=== PATIENT | female | born 1970 | race Caucasian/White ===

== ENCOUNTER 2023-12-26 14:22 | Outpatient (AMB) | payer MEDICAID, SELFPAY ==
--- NOTE | 2023-12-26 14:34 | A.OFFVIS_ITS ---
Intake Visit Reasons: microscopic hematuria Intake Note: Patient is present for microscopic hematuria Urology Medication:none Antibiotic Allergy:none Blood Thinner:none Cnc Lathe Programmer Required: No Allergies No Known Allergies Allergy (Verified 12/26/23 14:35) HPI Comments Details: Brittany is a 53-year-old female who is here for evaluation for hematuria. The patient states that she saw blood in her urine in August, she denies any urinary burning. She was seen by her blood donor recruiter supervisor and states that she was treated with antibiotics. History of nicotine use.I have discussed microscopic hematuria may be due to but not limited to kidney stones, BPH, cystitis, urinary tract malignancy. I will call I have discussed work up to include evaluation of the urinary tract which may include imaging, further urine testing, and cystoscopy. Review of Systems Const All systems reviewed & are unremarkable except as noted in HPI and below Reports no additional complaints Eyes Reports no additional complaints ENT Reports no additional complaints Card Reports no additional complaints Resp Reports no additional complaints GI Reports no additional complaints Reports as per HPI Musc Reports no additional complaints Skin/Breast Reports system reviewed and no additional complaints, except as documented Neuro Reports no additional complaints Psych Reports no additional complaints Endo Reports no additional complaints Kumar/Lymph Reports no additional complaints Aller/Immun Reports no additional complaints Physical Exam Const General: healthy appearing, no acute distress and well developed Orientation/consciousness: patient oriented x3 HEENT Head: Yes normocephalic and Yes atraumatic Eyes Conjunctivae: conjunctivae normal Neck Neck: Yes normal visual inspection Chest Chest palpation & inspection: normal inspection of the chest Resp Effort & Inspection: normal respiratory effort Cardio Rate: regular rate GI Inspection: Yes normal to inspection Skin General skin exam: no rashes or lesions noted Neuro General: patient oriented x3 Extrem General: No pedal edema Psych Appearance: grossly normal Affect: normal affect Results AMB Urinalysis, Automated UA Leukoctes 0 Omer/uL Last Edit by MISSAEL Tenorio on 12/26/23 14:48 UA Nitrite Negative Last Edit by MISSAEL Tenorio on 12/26/23 14:48 UA Urobilinogen 0.2 mg/dL Last Edit by MISSAEL Tenorio on 12/26/23 14:4 8 UA Protein 15 mg/dL Last Edit by MISSAEL Tneorio on 12/26/23 14:48 UA pH 6.5 Last Edit by MISSAEL Tenorio on 12/26/23 14:48 UA Blood 10 Mauro/uL Last Edit by MISSAEL Tenorio on 12/26/23 14:48 UA Specific Purdin 1.015 Last Edit by MISSAEL Tenorio on 12/26/23 14: 48 UA Ketone Negative Last Edit by MISSAEL Tenorio on 12/26/23 14:48 UA Bilirubin 0 mg/dL Last Edit by MISSAEL Tenorio on 12/26/23 14:48 UA Glucose 0 mg/dL Last Edit by MISSAEL Tenorio on 12/26/23 14:48 Results Reviewed Results Reviewed: Laboratory Last Values Urine pH (Auto) 6.5 12/26/23 14:46 Specific Purdin (Auto) 1.015 12/26/23 14:46 Urine Protein (Auto) 15 mg/dL 12/26/23 14:46 Glucose (UA)(Auto) 0 mg/dL 12/26/23 14:46 Urine Ketones (Auto) Negative 12/26/23 14:46 Urine Blood (Auto) 10 Mauro/uL 12/26/23 14:46 Urine Nitrite (Auto) Negative 12/26/23 14:46 Urine Bilirubin (Auto) 0 mg/dL 12/26/23 14:46 Urine Urobilinogen (Auto) 0.2 mg/dL 12/26/23 14:46 Leukocyte Esterase (Auto) 0 Omer/uL 12/26/23 14:46 Assessment & Plan Assessment & Plan (1) Gross hematuria: Code(s): R31.0 - Gross hematuria Category: Medical (2) Urinary frequency: Code(s): R35.0 - Frequency of micturition Category: Medical Plan CTAP fu cysto Orders: Orders AMB Urinalysis Automated 12/26/23 Z13.9 - Encounter for screening, unspecified Urine Cytology 12/26/23 N39.0 - Urinary tract infection, site not specified Patient Instructions: The patient had an opportunity to ask questions regarding treatment plan. The patient expressed understanding and agreement with the above treatment plan. The patient is aware they should contact our office by phone for worsening of their current condition or the appearance of new symptoms. Compliance is encouraged with any medications and followup testing that is ordered. It is a privilege to be allowed the opportunity to participate in the urologic care of your patient. If you have any questions or concerns regarding treatment for the above conditions please do not hesitate to contact me. The office telephone contact is [phone]. This note is constructed in part using voice recognition software. While every effort has been made to ensure accuracy petrol tanker driver errors may have been included. Yours sincerely, Aldo Marino MD Coding Level of Care Code New Pt Level 4 (03018) Diagnoses Gross hematuria R31.0 Urinary frequency R35.0
== END 2023-12-26 15:15 | disposition home or self-care (01) ==
PROVIDERS: PCP Physician Assistant; Visit Provider Urology
DX: R31.0 Gross hematuria (principal); R35.0 Frequency of micturition
CPT/HCPCS: 99204

== ENCOUNTER 2023-12-26 14:22 | Outpatient (REF) | payer MEDICAID, SELFPAY ==
[2023-12-26 17:56] LABS: Urine Cytology See Pathology rpt
== END 2023-12-26 14:23 | disposition home or self-care (01) ==
LOC: HO.LNP 14:22
PROVIDERS: PCP Physician Assistant; Visit Provider Urology
DX: R31.9 Hematuria, unspecified (principal); N39.0 Urinary tract infection, site not specified
CPT/HCPCS: 81003; 88112; 99202

== ENCOUNTER 2023-12-27 14:46 | Outpatient (REF) | payer MEDICAID, SELFPAY | END 2023-12-27 14:47 | disposition home or self-care (01) | LOC: HO.SH 14:46 | PROVIDERS: Visit Provider Physician Assistant | DX: Z01.118 Encounter for examination of ears and hearing with other abnormal findings (principal); H93.293 Other abnormal auditory perceptions, bilateral | CPT/HCPCS: 92557 ==

== ENCOUNTER 2024-02-08 13:42 | Outpatient (AMB) | payer MEDICAID, SELFPAY ==
--- NOTE | 2024-02-08 13:13 | MHC.OFFVIS ---
Intake Visit Reasons: cysto/CT Intake Note: Patient is present for Cystoscopy Urology Medication:NONE Antibiotic Allergy:NONE Blood Thinner:NONE Lot:[id number] Exp:02/03/27 Learning And Development Manager Required: No Allergies codeine Allergy (Mild, Verified 02/08/24 15:06) Itching oxycodone Allergy (Mild, Verified 02/08/24 15:06) Itching HPI Comments Details: 02/08/24-- Brittany was referred due to hematuria. Here for cystoscopy. CT not done. The patient states she has a history of kidney stones. She states she had recent back surgery done, that is why she missed her prior appointment and was unable to have the CT imaging done before this visit. Urine cytology- 12/26/23-- Atypical cells. Cystoscopy findings: Bladder mucosa within normal limits, no suspicious lesions visualized. Review of chart: 12/26/23--Brittany is a 53-year-old female who is here for evaluation for hematuria. The patient states that she saw blood in her urine in August, she denies any urinary burning. She was seen by her concrete mixer truck driver and states that she was treated with antibiotics. History of nicotine use.I have discussed microscopic hematuria may be due to but not limited to kidney stones, BPH, cystitis, urinary tract malignancy. I will call I have discussed work up to include evaluation of the urinary tract which may include imaging, further urine testing, and cystoscopy. Review of Systems Const All systems reviewed & are unremarkable except as noted in HPI and below Reports no additional complaints Eyes Reports no additional complaints ENT Reports no additional complaints Card Reports no additional complaints Resp Reports no additional complaints GI Reports no additional complaints Reports as per HPI Musc Reports no additional complaints Skin/Breast Reports system reviewed and no additional complaints, except as documented Neuro Reports no additional complaints Psych Reports no additional complaints Endo Reports no additional complaints Kumar/Lymph Reports no additional complaints Aller/Immun Reports no additional complaints Office Procedures Cystoscopy Consent Discussed risk and benefit or proposed procedure with the patient. Information consent for procedure given to the patient. Discussed technical aspects, risks, benefits and alternatives in full. Addressed all of the patient's questions and concerns regarding the procedure. The patient demonstrated knowledge and understanding. They wish to proceed with this procedure. Preparation The patient was prepped in the usual manner. A manager corporate strategy was present and in the room. Genitalia was prepped with betadine solution in a sterile manner. Lidocaine Jelly 2% was placed into the urethra and 16Fr flexible Olympus cystoscope was inserted into the meatus after adequate lubrication. Procedure Time out per protocol performed. Bladder Inspection Bladder Inspection: The bladder was inspected in its entirety with utilization retroflexion displaying: Tumor(s): no suspicious bladder lesions visualized Trabeculation: NA Mucosal Erthema: NA Orifices: normal shape and position Urethra: normal Cystoscopy findings: WNL, no suspicious bladder lesions visualized [id number] DISPOSABLE SCOPE URO-G FLEXIBLE SCOPE Procedure code (CPT) selection complete Office Meds lidocaine HCl 2 % mucosal jelly in applicator Performing Provider: Aldo Marino MD Performing Location: [facility] Administered by: Marcelino uMnoz LPN on 02/08/24 14:04 Dose Route Admin Location Dispensed Lot Number Expiration Date [facility] Clinical Trial Leader 10 mL intra-urethral 10 mL naproxen 500 mg tablet Performing Provider: Aldo Marino MD Performing Location: [facility] Administered by: Marcelino Munoz LPN on 02/08/24 14:04 Dose Route Admin Location Dispensed Lot Number Expiration Date [place] Clinical Trial Leader 500 mg PO 1 tab ciprofloxacin HCl 500 mg tablet Performing Provider: Aldo Marino MD Performing Location: [facility] Administered by: Marcelino Munoz LPN on 02/08/24 14:04 Dose Route Admin Location Dispensed Lot Number Expiration Date [place] Clinical Trial Leader 500 mg PO 1 tab Results AMB Urinalysis, Automated UA Leukoctes 15 Omer/uL Last Edit by MISSAEL Tenorio on 02/08/24 14:05 UA Nitrite Negative Last Edit by MISSAEL Tenorio on 02/08/24 14:05 UA Urobilinogen 0.2 mg/dL Last Edit by MISSAEL Tenorio on 02/08/24 14:05 UA Protein 15 mg/dL Last Edit by MISSAEL Tenorio on 02/08/24 14:05 UA pH 6.0 Last Edit by MISSAEL Tenorio on 02/08/24 14:05 UA Blood 25 Mauro/uL Last Edit by MISSAEL Tenorio on 02/08/24 14:05 UA Specific Glide 1.025 Last Edit by MISSAEL Tenorio on 02/08/24 14:05 UA Ketone Negative Last Edit by MISSAEL Tenorio on 02/08/24 14:05 UA Bilirubin 0 mg/dL Last Edit by MISSAEL Tenorio on 02/08/24 14:05 UA Glucose 0 mg/dL Last Edit by MISSAEL Tenorio on 02/08/24 14:05 Results Reviewed Results Reviewed: Laboratory Last Values Urine pH (Auto) 6.0 02/08/24 14:04 Specific Glide (Auto) 1.025 02/08/24 14:04 Urine Protein (Auto) 15 mg/dL 02/08/24 14:04 Glucose (UA)(Auto) 0 mg/dL 02/08/24 14:04 Urine Ketones (Auto) Negative 02/08/24 14:04 Urine Blood (Auto) 25 Mauro/uL 02/08/24 14:04 Urine Nitrite (Auto) Negative 02/08/24 14:04 Urine Bilirubin (Auto) 0 mg/dL 02/08/24 14:04 Urine Urobilinogen (Auto) 0.2 mg/dL 02/08/24 14:04 Leukocyte Esterase (Auto) 15 Omer/uL 02/08/24 14:04 Collected: 12/26/23 Location: [facility] Received: 12/27/23 Diagnosis Urine, cytology: Atypical urothelial cells present. COMMENT: Review of the cytology preparation demonstrates a cellular specimen composed of benign squames and few groups of atypical urothelial cells with increased nuclear to cytoplasmic ratios and nuclear hyperchromasia. Clinical History Urinary tract infection, site not specified Material Received Urine Gross Description Received is 22 cc of clear dark yellow fluid from which a ThinPrep slide is prepared. Assessment & Plan Assessment & Plan (1) Gross hematuria: Code(s): R31.0 - Gross hematuria Category: Medical (2) Urinary frequency: Code(s): R35.0 - Frequency of micturition Category: Medical (3) History of kidney stones: Code(s): Z87.442 - Personal history of urinary calculi Category: Medical (4) Abnormal urine cytology: Code(s): R82.89 - Other abnormal findings on cytological and histological examination of urine Category: Medical Plan CT scan abdomen pelvis was ordered patient will call radiology to schedule. I will discuss results with her when available. Repeat urine cytology. Orders: Orders AMB Urinalysis Automated 02/08/24 Z13.9 - Encounter for screening, unspecified AMB Cystoscopy 02/08/24 R35.0 - Frequency of micturition, R31.0 - Gross hematuria Urine Cytology 02/08/24 N39.0 - Urinary tract infection, site not specified Patient Instructions: The patient had an opportunity to ask questions regarding treatment plan. The patient expressed understanding and agreement with the above treatment plan. The patient is aware they should contact our office by phone for worsening of their current condition or the appearance of new symptoms. Compliance is encouraged with any medications and followup testing that is ordered. It is a privilege to be allowed the opportunity to participate in the urologic care of your patient. If you have any questions or concerns regarding treatment for the above conditions please do not hesitate to contact me. The office telephone contact is [phone]. This note is constructed in part using voice recognition software. While every effort has been made to ensure accuracy spa therapist errors may have been included. Yours sincerely, Aldo Marino MD Coding Level of Care Code Est Pt Level 3 (35496) Diagnoses Gross hematuria R31.0 Urinary frequency R35.0 History of kidney stones Z87.442 Abnormal urine cytology R82.89 CPT Codes Cystoscopy - CPT: [id number] ([id number])
== END 2024-02-08 14:32 | disposition home or self-care (01) ==
PROVIDERS: PCP Physician Assistant; Visit Provider Urology
DX: R35.0 Frequency of micturition (principal); R31.0 Gross hematuria; Z13.9 Encounter for screening, unspecified
CPT/HCPCS: 52000; 99213

== ENCOUNTER 2024-02-08 13:42 | Outpatient (REF) | payer MEDICAID, SELFPAY ==
[2024-02-08 16:53] LABS: Urine Cytology See Pathology rpt
== END 2024-02-08 13:43 | disposition home or self-care (01) ==
LOC: HO.LAB 13:42
PROVIDERS: PCP Physician Assistant; Visit Provider Urology
DX: R31.0 Gross hematuria (principal); N39.0 Urinary tract infection, site not specified; R35.0 Frequency of micturition; R82.89 Other abnormal findings on cytological and histological examination of urine; Z87.442 Personal history of urinary calculi
CPT/HCPCS: 52000; 81003; 88112; 99212

== ENCOUNTER 2024-05-02 14:19 | Outpatient (REF) | payer MEDICAID, SELFPAY ==
--- OUTSIDE RECORDS SUMMARY | 2024-05-02 14:20 | XMS_ITS | Clinical Summary ---
Author Organization [facility] Address [address] [place] [address] Care Team Providers Care Cost And Sales Record Supervisor Name Role Phone Lucía Palencia PA-C Primary Care Provider + [phone] Source Comments PLEASE NOTE, if this patient is a minor, it may be UNLAWFUL to discuss sensitive information that is contained in these records (such as FAMILY PLANNING, MENTAL HEALTH or SUBSTANCE ABUSE) with the minor patient's parent or other person without the patient's specific authorization.[facility] Allergies Active Allergy Reactions Criticality Noted Date Comments Codeine Itching 12/20/2012 Oxycodone-Acetaminophen Itching 12/20/2012 Medications mirtazapine (REMERON) 15 mg tabletIndication s:Insomnia Take 1 Tab by mouth nightly at bedtime. PER PSYCH. 013 Active buPROPion HCl (WELLBUTRIN XL) 300 mg 24 hr tablet 019 Active VITAMIN D3 2,000 unit capsuleIndicatio ns:Vitamin D deficiency disease Take 1 Cap by mouth once daily 30 Cap 11 019 Active oxybutynin chloride (DITROPAN-XL) 5 mg 24 hr tabletIndication s:Night sweats Take 1 Tablet by mouth nightly at bedtime 30 Tablet 4 022 Active FLUoxetine (PROZAC) 40 mg capsule 022 Active MISCELLANEOUS MEDICAL SUPPLY MISC by miscellaneous route daily. Ensure original, disp 90/month, dx unintended weight loss, low BMI 90 Each 11 024 Active diazePAM (VALIUM) 5 mg tabletIndication s:Lumbosacral disc herniation Take 1 Tablet by mouth 2 (two) times daily as needed for anxiety 60 Tablet 024 Active naproxen (NAPROSYN) 500 mg tabletIndication s:Left lumbar radiculopathy Take 1 Tablet by mouth 2 (two) times daily with a meal 180 Tablet 1 Active fluticasone furoate (ARNUITY ELLIPTA) 100 mcg/actuation dsdv Inhale 1 Puff into the lungs once daily 30 Each 4 Active estradioL (VIVELLE-DOT) 0.05 mg/[address] 1 Patch onto the skin 2 times a week 24 Patch 3 024 Active estradioL (VIVELLE-DOT) 0.05 mg/[address] 1 Patch onto the skin 2 times a week 24 Patch 1 024 Active VENTOLIN HFA 90 mcg/actuation inhalerIndicatio ns:Mild persistent asthma without complication Inhale 2 Puffs into the lungs every 4 (four) hours as needed for shortness of breath 18 g 1 025 Active VENTOLIN HFA 90 mcg/actuation inhalerIndicatio ns:Mild persistent asthma without complication Inhale 2 Puffs into the lungs every 4 (four) hours as needed for shortness of breath 18 g 1 024 2024 Discontinued Active Problems Problem Noted Date Diagnosed Date Lumbar disc disease 12/07/2023 Positive colorectal cancer screening using Colog uard test 09/23/2023 Recurrent nephrolithiasis 07/28/2022 Hot flashes 10/05/2021 H/O mammogram 11/05/2017 Overview (11/12/2017): Mammo 11/01/17 at [facility] 1, possibly 2 round masses in the left breast, U/S recommended, Pt will be called back. BIRADS 0 L Breast U/S 11/08/17 BIRADS 2 Hidradenitis suppurativa 10/09/2017 Abnormal mammogram of left breast 12/17/2015 Overview (11/05/2017): mammo left breast 12/07/15 which revealed developing grouped calcifications within upper inner posterior left breast for which magnification views are recommended. No specific mammo evidence of malignancy right. Uni left 12/14/15 = confirmed cluster of micro-calcifications posteriorly upper-inner quadrant left breast which are intermediate suspicion for malignancy. Core bx 12/30/15 = suspicious abnormality- need localization followed by surgical excision. Referred to breast surgeon. Mammo 11/01/17 at [facility] 1, possibly 2 round masses in the left breast, U/S recommended, Pt will be called back. BIRADS 0 Right ovarian cyst 10/07/2015 Overview (10/07/2015): 2.7 cm simple cyst right ovary, 1.7 cm dominant follicle left ovary via US Pelvis 10/05/15 at [facility] Granuloma of skin, right elbow secondary to fore ign body 05/14/2015 Left carpal tunnel syndrome 02/24/2014 Overview (02/24/2014): F/u neos. S/P right carpal tunnel release 11/06/2013 Dr. Johnson er 11/11/2013 Right carpal tunnel syndrome 08/02/2013 Overview (08/02/2013): EMG/NCS done 07/22/13 revealed mild to moderate right median neuropathy across carpal tunnel affecting sensory and motor component.s Cystic acne vulgaris 06/06/2013 Vitamin D deficiency disease 12/23/2012 Overview (12/23/2012): =13. Mixed hyperlipidemia 12/23/2012 Anxiety and depression 12/20/2012 Overview (12/20/2012): F/u psych at [address] [place] [address]. Insomnia 12/20/2012 Overview (12/20/2012): F/U PSYCH. Mild persistent asthma 12/20/2012 Tobacco abuse disorder 12/20/2012 Neck pain 12/20/2012 Back pain 12/20/2012 Immunizations Name Administration Dates Next Due Flu, Preservative Free 04/27/2023,2022,03/20/2018,01/11 INFLUENZA, SEASONAL, INJECTABLE 01/31/2015,12/20 PNEUMOCOCCAL CONJUGATE PCV 13 01/12/2016 PNEUMOCOCCAL POLYSACCHARIDE PPV23 10/09/2017 TDAP 04/27/2023 ZOSTER VACCINE, RECOMBINANT (SHINGRIX) 4,04/27/2023 Family History Medical History Relation Name Comments Diabetes Brother 1 No Known Problems Brother 2 Asthma Daughter 1 No Known Problems Daughter 2 Unknown Father Cancer Maternal Uncle Liver CA Diabetes Mother High Cholesterol Mother Thyroid Disease Mother Asthma Sister 1 Depression Sister 1 No Known Problems Sister 2 No Known Problems Son Heart Problems Neg Relation Name Status Comments Brother 1 Alive Brother 2 Alive Daughter 1 Alive Daughter 2 Alive Father Maternal Uncle Mother Alive Sister 1 Alive Sister 2 Alive Son Alive Social History Tobacco Use Types Packs/Day Years Used Date Smoking Tobacco: Every Day Cigarettes 0.5 33 Passive Smoke Exposure: Never Smokeless Tobacco: Never Tobacco Cessation:Ready to Q uit: No; Counseling Given: Yes Comments:Started smoking age 14 Alcohol Use Standard Drinks/Week Comments Not Currently 0 (1 standard drink = 0.6 oz pur e alcohol) Occassional Social Connections Answer Date Recorded Connectedness 1 06/29/2023 Financial Resource Strain Answer Date R ecorded Financial Resource Strain 1 2023 Stress Answer Date Recorded Stress 1 06/29/2023 Physical Activity Answer Date Recorded Physical Activity 0 11/18/2018 Food Insecurity Answer Date Recorded Food 2 06/29/2023 Transportation Needs Answer Date Record ed Transportation 1 06/29/2023 Housing Stability Answer Date Recorded Housing 2 06/29/2023 Safety and Environment Answer Date William rded Safety 1 06/29/2023 Utilities Answer Date Recorded Utilities 1 06/29/2023 Employment Answer Date Recorded Stress 0 07/28/2022 Comments No Sex and Gender Information Value Date Recorded Sex Assigned at Female 10/09/2017 12:04 PM PDT Legal Sex Female 5:04 PM PDT Gender Identity Female 10/09/2017 12:04 PM PDT Sexual Orientation Straight 10/09/2017 12 :04 PM PDT Last Filed Vital Signs Vital Sign Reading Time Taken Comments Blood Pressure 90/60 12/07/2023 3:21 PM EDT Pulse 84 12/07/2023 3:21 PM EDT Temperature 36.8 ??C (98.3 ??F) 12/07/2023 3:21 PM ED T Respiratory Rate 16 10/23/2023 1:07 PM EDT Oxygen Saturation 99% 12/07/2023 3:21 PM EDT Inhaled Oxygen Concentration - - Weight 40.4 kg (89 lb) 12/07/2023 3:21 PM EDT Height 149.9 cm (4' 11 ) 12/07/2023 3:21 PM EDT Body Mass Index 17.98 12/07/2023 3:21 PM EDT Plan of Treatment Upcoming Encounters Date Type Department Care Team (Late st Contact Info) Description 05/20/2024 1:00 PM EST Office Visit [facility] [address] [place] [address] Jordan Alejandra MD [address] [place] [address] Health Maintenance Due Date Last Done Comments HPV Screening 1970 Imm-Hepatitis B (1 of 3 - 19 + 3-dose series) 1989 CT Colonography 09/10/2015 Colonoscopy 09/10/2015 Flexible Sigmoidoscopy 09/10/2015 Pap Smear 04/29/2021 04/29/2018 Imm-Pneumococcal (3 of 3 - P CV20 or PCV21) 10/09/2022 10/09/2017, 01/12/2016 Colorectal Cancer Screening 09/16/2023 [id number] ( season) 2023 Imm-Influenza (#1) 2023 04/27/2023, 0 07/25/2022, 03/20/2018, Additional history exists Depression Monitoring 01/16/2024 10/16/2023 , 10/02/2023, 08/29/2023, Additional history exists Alcohol and Drug Screen 04/02/2024 10/16/19 24, 04/27/2023, 07/28/2022, Additional history exists Annual Preventive Care Visit 08/28/2024, 07/28/2022, 04/29/2018, Additional history exists FIT/gFOBT 09/14/2024 09/15/2023 Breast Cancer Screening (Mammogram) 11/15/2024 11/16/2023, 10/10/2022, 11/01/2017, Additional history exists Hypertension Screening (#1) 12/06/2024 Tobacco Cessation Counseling (#1) 12/06/2024 10/02/2023, 08/31/2023, 11/18/2018, Additional history exists Diabetes Screening 08/28/2026 08/29/2023, 0 04/27/2023, 04/27/2023, Additional history exists Fecal DNA 09/14/2026 09/15/2023 Lipid Screening 08/28/2028 08/29/2023, 04/2 09/2021, 09/20/2018, Additional history exists Imm-DTaP/Tdap/Td (2 - Td or Tdap) 04/27/2033 024 HIV Screening Completed 07/27/2021, 03/20/2018 Hepatitis C Screening Completed 07/27/2021 Imm-Zoster, Recombinant Completed 08/29/2023, 04/27 Cervical Ablation/Cold-Knife Conization Discontinued Cervical Cancer Screening Discontinued Cervical Cryotherapy Discontinued Colposcopy Discontinued Endometrial Biopsy Discontinued Excision/Leep Discontinued HPV Genotyping Discontinued Pap + HPV Discontinued Vaginal Pap Discontinued Vulvoscopy Discontinued Procedures Procedure Name Priority Date/Time Associated Diagnosis Comments REFERRAL SCANNED DOCUMENT 02/08/2024 3:00 AM EST HISTORIC MAMMOGRAM 11/16/2023 3: 00 AM EDT COLOGUARD Routine 09/15/2023 7:15 AM EDT Colon cancer screening COMPREHENSIVE METABOLIC PANEL Routine 08/29/2023 1:49 PM EDT Routine general medical examination at a health care facility Left lumbar radiculopathy Tobacco abuse disorder Mixed hyperlipidemia Colon cancer screening LIPID PANEL Routine 08/29/2023 1:49 PM EDT Routine general medical examination at a health care facility Left lumbar radiculopathy Tobacco abuse disorder Mixed hyperlipidemia Colon cancer screening HIV 1/2 AG & AB W/RFLX (4TH GEN) Routine 07/27/2021 9:00 AM EDT Anxiety and depression Mixed hyperlipidemia Hot flashes HEPATITIS C AB W/RFLX HCV RNA, QT, RT PCR Routine 07/27/2021 9:00 AM EDT Anxiety and depression Mixed hyperlipidemia Hot flashes PAP, LIQUID BASED Routine 04/29/2018 1:3 2 PM EST Encounter for gynecological examination without abnormal finding Cervical cancer screening from Last 3 Months or Most Recently Relevant to Health Maintenance Results * REFERRAL SCANNED DOCUMENT (02/08/2024 3:00 AM EST) 02/08/2024 3:00 AM EST Lucía Palencia PA-C SCAN REFERRAL Final Result * HISTORIC MAMMOGRAM (11/16/2023 3:00 AM EDT) 11/16/2023 3:00 AM EDT Lucía Palencia PA-C IMG MAMMO Final Result * (ABNORMAL) COLOGUARD (09/15/2023 7:15 AM EDT) [facility] COLOGUARD DNA/OCCULT BLOOD SCREENING PRESENCE POSITIVE( A) Negative [facility] Stool Stool specimen / Unknown 09/15/2023 7:15 AM EDT Lucía Palencia PA-C LAB - NO BLOOD DRAW Final Re sult [facility] [address] [facility], [address] [facility] [id number] [place] [address], * (ABNORMAL) LIPID PANEL (08/29/2023 1:49 PM EDT) Pathologist [facility] CHOLESTEROL, TOTAL 225(H) <200 mg/dL [facility] HDL CHOLESTEROL 48(L) > OR = 50 mg/dL [facility] TRIGLYCERIDES 179(H) <150 mg/dL [facility] LDL-CHOLESTEROL 146(H) 99 mg/dL (calc) [facility] Comment: Reference range: <100 Desirable range <100 mg/dL for primary prevention; ?? <70 mg/dL for patients with CHD or diabetic patients with > or = 2 CHD risk factors. LDL-C is now calculated using the Vineet calculation, which is a validated novel method providing better accuracy than the Friedewald equation in the estimation of LDL-C. Brannon BUSCH et al. NIKIA. 2013;310(19): 3304-2928 (http://education.Meridian/faq/JXB177) CHOL/HDLC RATIO 4.7 <5.0 (calc) [facility] NON-HDL CHOLESTEROL 177(H) <130 mg/dL (calc) [facility] Comment: For patients with diabetes plus 1 major ASCVD risk factor, treating to a non-HDL-C goal of <100 mg/dL (LDL-C of <70 mg/dL) is considered a therapeutic option. Blood Blood / Unknown 08/29/2023 1:49 PM EDT 08/29/2023 1:50 PM EDT Narrative [facility] - 09/06/2023 12:51 PM EDT FASTING:NO us Lucía Palencia PA-C LAB - BLOOD DRAW Final Resul t [facility] [address] [address], [facility] [address] [address] * (ABNORMAL) COMPREHENSIVE METABOLIC PANEL (08/29/2023 1:49 PM EDT) [facility] GLUCOSE 43(L) 65 - 139 mg/dL [facility] Comment: ?Non-fasting reference interval UREA NITROGEN (BUN) 26(H) 7 - 25 mg/dL [facility] CREATININE (blood) 0.83 0.50 - 1.03 mg/dL [facility] EGFR 85 > OR = 60 mL/min/1. 73m2 [facility] BUN/CREATININE RATIO 31(H) 6 - 22 (calc) [facility] SODIUM 142 135 - 146 mmol/L [facility] POTASSIUM 4.7 3.5 - 5.3 mmol/L [facility] CHLORIDE 107 98 - 110 mmol/L [facility] CARBON DIOXIDE 23 20 - 32 mmol/L [facility] CALCIUM 9.6 8.6 - 10.4 mg/dL [facility] PROTEIN, TOTAL 6.3 6.1 - 8.1 g/dL [facility] ALBUMIN 4.2 3.6 - 5.1 g/dL [facility] GLOBULIN 2.1 1.9 - 3.7 g/dL (calc) [facility] ALBUMIN/GLOBULIN RATIO 2.0 1.0 - 2.5 (calc) [facility] BILIRUBIN, TOTAL 0.2 0.2 - 1.2 mg/dL [facility] ALKALINE PHOSPHATASE 72 37 - 153 U/L [facility] [place] [facility] AST 13 10 - 35 U/L [facility] [place] [facility] ALT 11 6 - 29 U/L [facility] Blood Blood / Unknown 08/29/2023 1 :49 PM EDT 08/29/2023 1:50 PM EDT Narrative [facility] - 09/06/2023 12:51 PM EDT FASTING:NO Lucía Palencia PA-C LAB - BLOOD DRAW Edited Resu lt - Final [facility] [address] [address], [facility] [address] [address] * HEPATITIS C AB W/RFLX HCV RNA, QT, RT PCR (07/27/2021 9:00 AM EDT) HEPATITIS C ANTIBODY NON-REACT RAFITA NON-REACT RAFITA [facility] SIGNAL TO CUT-OFF 0.01 <1.00 [facility] Comment: HCV antibody was non-reactive. There is no laboratory evidence of HCV infection. In most cases, no further action is required. However, if recent HCV exposure is suspected, a test for HCV RNA (test code 74321) is suggested. For additional information please refer to http://education.CmyCasa/faq/QIR42v9 (This link is being provided for informational/ educational purposes only.) Blood Blood / Unknown 07/27/2021 9 :00 AM EDT 07/27/2021 9:01 AM EDT Lucía Palencia PA-C LAB - BLOOD DRAW Edited Resu lt - Final Performing Organization Address City/[facility]/ZIP Co de Phone Number [facility] [address] [address], [facility] [address],[place] [address] * HIV 1/2 AG & AB W/RFLX (4TH GEN) (07/27/2021 9:00 AM EDT) HIV AG/AB, 4TH GEN NON-REAC TIVE NON-REAC TIVE [facility] Comment: HIV-1 antigen and HIV-1/HIV-2 antibodies were not detected. There is no laboratory evidence of HIV infection. PLEASE NOTE: This information has been disclosed to you from records whose confidentiality may be protected by state law. ??If your state requires such protection, then the state law prohibits you from making any further disclosure of the information without the specific written consent of the person to whom it pertains, or as otherwise permitted by law. A general authorization for the release of medical or other information is NOT sufficient for this purpose. ?? For additional information please refer to http://education.CmyCasa/faq/EQT073 (This link is being provided for informational/ educational purposes only.) The performance of this assay has not been clinically validated in patients less than 2 years old. Blood Blood / Unknown 07/27/2021 9 :00 AM EDT 07/27/2021 9:01 AM EDT Lucía Palencia PA-C LAB - BLOOD DRAW Final Resul t [facility] [address] [address], [facility] [address],[place] [address] * PAP, LIQUID BASED (04/29/2018 1:32 PM EST) PAP normal NORMAL - ABNORMAL [facility] Specimen from vagina (specimen) Vaginal structure / Unknown 04/29/2018 1:32 PM EST Impressions [facility] - 05/06/2018 4:28 PM EST Negative for squamous intraepithelial lesion and malignancy High risk HPV assay: Negative Repeat 5 years Lucía Palencia PA-C LAB - NO BLOOD DRAW Final Re sult [facility] [address] [place] [address], from Last 3 Months or Most Recently Relevant to Health Maintenance Insurance [place] MED[place] DENTAL [facility] SAF[employer]Y NET DENTAL A[employer] Care Teams Cost And Sales Record Supervisor Relationship Specialty Start Date End Date Lucía Palencia PA-C [address] [place] [phone] PCP - General Internal Medicine 02/02/20
== END 2024-05-02 14:20 | disposition home or self-care (01) ==
LOC: HO.US 14:19
PROVIDERS: PCP Physician Assistant; Visit Provider Urology
DX: R31.0 Gross hematuria (principal); R82.89 Other abnormal findings on cytological and histological examination of urine; R35.0 Frequency of micturition; Z87.442 Personal history of urinary calculi
CPT/HCPCS: 76770

== ENCOUNTER → 2024-05-02 14:20 | Outpatient (BNV) | payer MEDICAID, SELFPAY | PROVIDERS: PCP Physician Assistant; Visit Provider Specialist | DX: R82.89 Other abnormal findings on cytological and histological examination of urine (principal) | CPT/HCPCS: 76770 ==

== ENCOUNTER 2024-05-12 13:29 | Outpatient (AMB) | payer MEDICAID, SELFPAY ==
--- NOTE | 2024-05-12 13:29 | A.OFFVIS_ITS ---
Intake Visit Reasons: Followup/US Intake Note: Patient is present for US F/U Urology Medication:OXYBUTYNIN,ESTRADIOL Antibiotic Allergy:NONE Blood Thinner:NONE [employer] Operator Required: No Allergies codeine Allergy (Mild, Verified 05/12/24 13:30) Itching oxycodone Allergy (Mild, Verified 05/12/24 13:30) Itching HPI Comments Details: 05/12/24--Telehealth fu--reviewed renal US results:05/02/24-- Bilateral renal parenchymal calculi. No acute findings. Pt encouraged to increase fluids. 24 hr urine for further evaluation. 02/08/24-- Brittany was referred due to hematuria. Here for cystoscopy. CT not done. The patient states she has a history of kidney stones. She states she had recent back surgery done, that is why she missed her prior appointment and was unable to have the CT imaging done before this visit. Urine cytology- 12/26/23-- Atypical cells. Cystoscopy findings: Bladder mucosa within normal limits, no suspicious lesions visualized. 12/26/23--Brittany is a 53-year-old female who is here for evaluation for hematuria. The patient states that she saw blood in her urine in August, she denies any urinary burning. She was seen by her lens finisher and states that she was treated with antibiotics. History of nicotine use.I have discussed microscopic hematuria may be due to but not limited to kidney stones, BPH, cystitis, urinary tract malignancy. I will call I have discussed work up to include evaluation of the urinary tract which may include imaging, further urine testing, and cystoscopy. Review of Systems Const All systems reviewed & are unremarkable except as noted in HPI and below Reports no additional complaints Eyes Reports no additional complaints ENT Reports no additional complaints Card Reports no additional complaints Resp Reports no additional complaints GI Reports no additional complaints Reports as per HPI Musc Reports no additional complaints Skin/Breast Reports system reviewed and no additional complaints, except as documented Neuro Reports no additional complaints Psych Reports no additional complaints Endo Reports no additional complaints Kumar/Lymph Reports no additional complaints Aller/Immun Reports no additional complaints Telehealth Telehealth Telehealth Platform: Telephone Location of provider rendering services: practice address Location of patient: address on file Patient Identification confirmed using: Name, : Yes Telehealth method: voice only Patient verbally consented to treatment: Yes Patient verbally consented to billing insurance company: Yes Patient informed of any privacy concerns related to visit: Yes Minutes spent on Phone/Video with Pt.: 14 Results Reviewed Results Reviewed: Date of Service: 05/02/24 US Renal Comparison: None Findings: Right kidney normal size and echotexture, 10.1 cm length. Left kidney normal size and echotexture, 10.7 cm length. No collecting system dilatation of either kidney. There are bilateral renal parenchymal calculi. Normal color Doppler. Urinary bladder is unremarkable. Prevoid volume 48 mL. Postvoid volume 52 mL. Prevoid measurement is actually postvoid with the patient inability to fully cooperate with the examination. Bilateral ureteral jets are visualized. IMPRESSION: 1. Bilateral renal parenchymal calculi. No acute findings. Collected: 12/26/23 [facility] Received: 12/27/23 Diagnosis Urine, cytology: Atypical urothelial cells present. COMMENT: Review of the cytology preparation demonstrates a cellular specimen composed of benign squames and few groups of atypical urothelial cells with increased nuclear to cytoplasmic ratios and nuclear hyperchromasia. Clinical History Urinary tract infection, site not specified Material Received Urine Gross Description Received is 22 cc of clear dark yellow fluid from which a ThinPrep slide is prepared. Assessment & Plan Assessment & Plan (1) History of kidney stones: Code(s): Z87.442 - Personal history of urinary calculi Category: Medical (2) Nephrocalcinosis: Code(s): E83.59 - Other disorders of calcium metabolism; N29 - Other disorders of kidney and ureter in diseases classified elsewhere Category: Medical Plan 24 hr urine, fu in 12 weeks to discuss Cont to monitor kidneys, renal US in 9 months Orders: Orders US renal BI 9 Months E83.59 - Other disorders of calcium metabolism, N29 - Other disorders of kidney and ureter in diseases classified elsewhere, Z87.442 - Personal history of urinary calculi Patient Instructions: The patient had an opportunity to ask questions regarding treatment plan. The patient expressed understanding and agreement with the above treatment plan. The patient is aware they should contact our office by phone for worsening of their current condition or the appearance of new symptoms. Compliance is encouraged with any medications and followup testing that is ordered. It is a privilege to be allowed the opportunity to participate in the urologic care of your patient. If you have any questions or concerns regarding treatment for the above conditions please do not hesitate to contact me. The office telephone contact is [phone]. This note is constructed in part using voice recognition software. While every effort has been made to ensure accuracy savings counselor errors may have been included. Yours sincerely, Aldo Marino MD Coding Level of Care Code Tele Est Pt Level 3 (11556) Diagnoses History of kidney stones Z87.442 Nephrocalcinosis E83.59; N29
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
--- OUTSIDE RECORDS SUMMARY | 2024-05-12 14:35 | XMS_ITS | Clinical Summary ---
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 Name Role Phone Jennie Fox Primary Care Provider Social History Tobacco Use Types Packs/Day Years Used Date Smoking Tobacco: Never Assessed Comments Unknown Sex and Gender Information Value Date Recorded Sex Assigned at Not on file Legal Sex Female 4:36 AM EST Gender Identity Not on file Sexual Orientation Not on file Plan of Treatment Health Maintenance Due Date Last Done Comments DTaP,Tdap,and Td Vaccines (1 - Tdap) 1977 Hepatitis B Vaccines (1 of 3 - 19+ 3-dose series) 1989 Cervical Cancer Screening: Pap Smear 09/10/1991 Pneumococcal Vaccine: 50+ Years (1 of 1 - PCV) 2020 Zoster Vaccines (1 of 2) 2020 Colorectal Cancer Screening: Colonoscopy 03/05/2022 Depression Screening 03/05/2022 HIV Screening 03/05/2022 Hepatitis C Screening 03/05/2022 Social Influencers of Health Screening 03/05/2022 COVID-19 Vaccine ( - 2023- season) 2023 Influenza Vaccine (#1) 2023 Breast Cancer Screening 11/19/2025 11/20/19 24, 10/11/2022, 10/05/2021, Additional history exists HIB Vaccines Aged Out No longer eligi ble based on patient's age to complete this topic HPV Vaccines Aged Out No longer eligi ble based on patient's age to complete this topic Hepatitis A Vaccines Aged Out No long er eligible based on patient's age to complete this topic IPV Vaccines Aged Out No longer eligi ble based on patient's age to complete this topic MMR Vaccines Aged Out No longer eligi ble based on patient's age to complete this topic Meningococcal ACWY Vaccine Aged Out N o longer eligible based on patient's age to complete this topic Meningococcal B Vacine Aged Out No lo nger eligible based on patient's age to complete this topic Pneumococcal Vaccine: Pediatrics (0 to 5 Years) and At-Risk Patients (6 to 64 Years) Aged Out No longer eligible based on patient's age to complete this topic RSV Immunization Patients Under 20 months Aged Out No longer eligible based on patient's age to complete this topic Varicella Vaccines Aged Out No longer eligible based on patient's age to complete this topic Procedures Procedure Name Priority Date/Time Associated Diagnosis Comments [facility] SCREENING DIGITAL Routine 11/20/2023 9:32 AM EDT Encounter for screening mammogram for malignant neoplasm of breast from Last 3 Months or Most Recently Relevant to Health Maintenance Results * [facility] SCREENING DIGITAL (11/20/2023 9:32 AM EDT) Anatomical Region Laterality Modality Mammography 11/16/2023 1:31 PM EDT Narrative 11/20/2023 9:32 AM EDT [facility] Diagnostic Imaging Department [address] [place], [place] [id number] Patient: ??WALLACE MURO ?/Age/Sex: 1970 - 53 - F Unit#: ??[id number] ? Location/Status: ??SPDIMAM/REG CLI ? Mnemonic/Ordering Site: ??DIGSC/SPMAM Ordering Physician: ??JENNIE FOX Gian Screening Digital - 11/16/23 - 1351 Report Status:Signed EXAM: [facility] Screening Digital EXAM DATE AND TIME: 11/16/2023 1:51 PM HISTORY: ??Screening. Excisional biopsy of the left breast in 2016, pathology benign. Patient states weight loss since the previous exam. COMPARISON: ??10/10/22, 10/05/21, 01/03/19 TECHNIQUE: Bilateral digital breast tomosynthesis was performed in the CC and MLO projections. Computer aided detection with 99Bill 3D 3.1 was employed. TISSUE DENSITY: c. The breasts are heterogeneously dense, which may obscure small masses. FINDINGS: The breasts have decreased in size and are more dense, consistent with the weight loss history. The nodular parenchymal pattern is again noted. No suspicious masses, grouped microcalcifications, or areas of architectural distortion are seen. The skin and vascularity are unremarkable. IMPRESSION: No mammographic evidence of malignancy is seen. A negative mammogram in the presence of a clinically suspicious palpable abnormality does not preclude the possibility of malignancy or alter the indications for biopsy. BI-RADS: ??Category 2: Benign RECOMMENDATION(S): 1: Routine screening mammogram BILATERAL in 1 year. Dictating Physician: ??ARLENE FLOWERS MD Electronically Signed by: ??ARLENE FLOWERS MD Dic Date/Time: ??11/20/23930 Sign date/Time: ??11/20/23931 Procedure Note Arlene Flowers MD - 01/16/2024 [facility] Diagnostic Imaging Department [address] [place], [place] [address] Patient: WALLACE MURO/Age/Sex: 1970 - 53 - F Unit#: [id number] Location/Status: SPDIMAM/REG CLI Mnemonic/Ordering Site: [facility] Ordering Physician: JENNIE FOX [facility] Screening Digital - 11/16/23 - 1351 Report Status:Signed EXAM: [facility] Screening Digital EXAM DATE AND TIME: 11/16/2023 1:51 PM HISTORY: Screening. Excisional biopsy of the left breast in 2016,pathology benign. Patient states weight loss since the previous exam. COMPARISON: 10/10/22, 10/05/21, 01/03/19 TECHNIQUE: Bilateral digital breast tomosynthesis was performed in the CCand MLO projections. Computer aided detection with 99Bill 3D 3.1was employed. TISSUE DENSITY: c. The breasts are heterogeneously dense, which mayobscure small masses. FINDINGS: The breasts have decreased in size and are more dense, consistent withthe weight loss history. The nodular parenchymal pattern is again noted. No suspicious masses,grouped microcalcifications, or areas of architectural distortion are seen. Theskin and vascularity are unremarkable. IMPRESSION: No mammographic evidence of malignancy is seen. A negative mammogram in the presence of a clinically suspicious palpable abnormality does not preclude the possibility of malignancy or alter the indications for biopsy. BI-RADS: Category 2: Benign RECOMMENDATION(S): 1: Routine screening mammogram BILATERAL in 1 year. Dictating Physician: ARLENE FLOWERS MD Electronically Signed by: ARLENE FLOWERS MD Dic Date/Time: 11/20/23930 Sign date/Time: 11/20/23931 Jennie BUNN IMG BI PROCEDURES Final Result from Last 3 Months or Most Recently Relevant to Health Maintenance Care Teams Steel Rule Die Maker Apprentice Relationship Specialty Start Date End Date Jennie Fox PA [facility] [place] [address] PCP - General Internal Medicine 09/21/21
== END 2024-05-12 14:38 | disposition home or self-care (01) ==
LOC: HO.HUSH 13:29
PROVIDERS: PCP Physician Assistant; Visit Provider Urology
DX: Z87.442 Personal history of urinary calculi (principal); E83.59 Other disorders of calcium metabolism; N29 Other disorders of kidney and ureter in diseases classified elsewhere
CPT/HCPCS: 99213

== ENCOUNTER 2024-08-22 07:48 | Outpatient (AMB) | payer MEDICAID, SELFPAY ==
--- NOTE | 2024-08-22 07:46 | MHC.OFFVIS ---
Intake Visit Reasons: 12w/24hr urine Intake Note: Patient is present for 12 week follow up/[facility] Medication:OXYBUTYNIN,ESTRADIOL Antibiotic Allergy: NONE Blood Thinner: NONE Face Boss Required: No Allergies codeine Allergy (Mild, Verified 08/22/24 08:08) Itching oxycodone Allergy (Mild, Verified 08/22/24 08:08) Itching HPI Comments Details: 08/22/24--Discussed 24 hour urine results collected:07/12/24-- Total volume 1.21 L, Calcium 134 mg; Oxalate 30 mg, Citrate 342 mg, Sodium 69. Instructed on importance of fluid intake. Cont to monitor kidneys. FU renal US. 05/12/24--Telehealth fu--reviewed renal US results:05/02/24-- Bilateral renal parenchymal calculi. No acute findings. Pt encouraged to increase fluids. 24 hr urine for further evaluation. 02/08/24-- Brittany was referred due to hematuria. Here for cystoscopy. CT not done. The patient states she has a history of kidney stones. She states she had recent back surgery done, that is why she missed her prior appointment and was unable to have the CT imaging done before this visit. Urine cytology- 12/26/23-- Atypical cells. Cystoscopy findings: Bladder mucosa within normal limits, no suspicious lesions visualized. 12/26/23--Brittany is a 53-year-old female who is here for evaluation for hematuria. The patient states that she saw blood in her urine in August, she denies any urinary burning. 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 History of nicotine use.I have discussed microscopic hematuria may be due to but not limited to kidney stones, BPH, cystitis, urinary tract malignancy. I will call I have discussed work up to include evaluation of the urinary tract which may include imaging, further urine testing, and cystoscopy. Review of Systems Const All systems reviewed & are unremarkable except as noted in HPI and below Reports no additional complaints Eyes Reports no additional complaints ENT Reports no additional complaints Card Reports no additional complaints Resp Reports no additional complaints GI Reports no additional complaints Reports as per HPI Musc Reports no additional complaints Skin/Breast Reports system reviewed and no additional complaints, except as documented Neuro Reports no additional complaints Psych Reports no additional complaints Endo Reports no additional complaints Kumar/Lymph Reports no additional complaints Aller/Immun Reports no additional complaints Telehealth Telehealth Telehealth Platform: Telephone Location of provider rendering services: practice address Location of patient: address on file Patient Identification confirmed using: Name, : Yes Telehealth method: voice only Patient verbally consented to treatment: Yes Patient verbally consented to billing insurance company: Yes Patient informed of any privacy concerns related to visit: Yes Minutes spent on Phone/Video with Pt.: 13 Results Reviewed Results Reviewed: Date of Service: 05/02/24 Renal Comparison: None Findings: Right kidney normal size and echotexture, 10.1 cm length. Left kidney normal size and echotexture, 10.7 cm length. No collecting system dilatation of either kidney. There are bilateral renal parenchymal calculi. Normal color Doppler. Urinary bladder is unremarkable. Prevoid volume 48 mL. Postvoid volume 52 mL. Prevoid measurement is actually postvoid with the patient inability to fully cooperate with the examination. Bilateral ureteral jets are visualized. IMPRESSION: 1. Bilateral renal parenchymal calculi. No acute findings. Collected: 12/26/23 Location: [facility] Received: 12/27/23 Diagnosis Urine, cytology: Atypical urothelial cells present. COMMENT: Review of the cytology preparation demonstrates a cellular specimen composed of benign squames and few groups of atypical urothelial cells with increased nuclear to cytoplasmic ratios and nuclear hyperchromasia. Clinical History Urinary tract infection, site not specified Material Received Urine Gross Description Received is 22 cc of clear dark yellow fluid from which a ThinPrep slide is prepared. Assessment & Plan Assessment & Plan (1) History of kidney stones: Code(s): Z87.442 - Personal history of urinary calculi Category: Medical (2) Nephrocalcinosis: Code(s): E83.59 - Other disorders of calcium metabolism; N29 - Other disorders of kidney and ureter in diseases classified elsewhere Category: Medical Plan Instructed on importance of fluid intake. Cont to monitor kidneys. FU renal US. Patient Instructions: The patient had an opportunity to ask questions regarding treatment plan. The patient expressed understanding and agreement with the above treatment plan. The patient is aware they should contact our office by phone for worsening of their current condition or the appearance of new symptoms. Compliance is encouraged with any medications and followup testing that is ordered. It is a privilege to be allowed the opportunity to participate in the urologic care of your patient. If you have any questions or concerns regarding treatment for the above conditions please do not hesitate to contact me. The office telephone contact is [phone]. This note is constructed in part using voice recognition software. While every effort has been made to ensure accuracy supervisor rod placing errors may have been included. Yours sincerely, Aldo Marino MD Coding Level of Care Code Tele Est Pt Level 3 (32836) Diagnoses History of kidney stones Z87.442 Nephrocalcinosis E83.59; N29
--- OUTSIDE RECORDS SUMMARY | 2024-08-22 07:49 | XMS_ITS | Clinical Summary ---
Author Organization [facility] Address [address] [place] [address] Phone Care Team Providers Care Lav Crewman Name Role Phone Yomi Oliva NAINA Primary Care Provider Allergies No known active allergies Medications amoxicillin-cla vulanate (AUGMENTIN) 875-125 mg per tablet Take 1 tablet by mouth every 12 (twelve) hours for 7 days. 13 tablet 07/17/2024 Encounters Date Type Department Care Team Description 08/06/2024 Telephone Gastroenterology - [place] 175 [facility] [address] [facility] [address] [place] [address] Sera Cee MD appointment 07/17/2024 5:13 PM EDT - 07/17/2024 11:33 PM EDT Emergency [facility] Emergency [address] [place] [address] Colitis (Primary Dx); Acute exacerbation of chronic low back pain Discharge Disposition: Home or Self Care from Last 3 Months Medical History Medical History Date Comments Known health problems: none Social History Tobacco Use Types Packs/Day Years Used Date Smoking Tobacco: Never Assessed Comments Unknown Sex and Gender Information Value Date Recorded Sex Assigned at Female 07/17/2024 5:34 PM EDT Legal Sex Female 4:36 AM EST Gender Identity Female 07/17/2024 5:34 PM EDT Sexual Orientation Straight 07/17/2024 5: 34 PM EDT Obstetrics History Last Filed Vital Signs Vital Sign Reading Time Taken Comments Blood Pressure 91/58 07/17/2024 11:10 PM EDT Pulse 69 07/17/2024 11:10 PM EDT Temperature 36.7 ??C (98.1 ??F) 07/17/2024 11:10 PM E DT Respiratory Rate 18 07/17/2024 11:10 PM EDT Oxygen Saturation 98% 07/17/2024 11:10 PM EDT Inhaled Oxygen Concentration - - Weight 40.4 kg (89 lb) 07/17/2024 4:37 PM EDT Height 149.9 cm (4' 11 ) 07/17/2024 4:37 PM EDT Body Mass Index 17.98 07/17/2024 4:37 PM EDT Plan of Treatment Upcoming Encounters Date Type Department Care Team (Late st Contact Info) Description 10/02/2024 2:40 PM EDT Consult Gastroenterology - [place] [address] [place] [id number] Shikha Fournier, COTY 175 [facility] [address] [place] [address] Health Maintenance Due Date Last Done Comments Hepatitis B Vaccines (1 of 3 - 19+ 3-dose series) 1989 Cervical Cancer Screening: Pap Smear 04/29/2021 04/29/2018 HIV Screening 03/05/2022 Social Influencers of Health Screening 03/05/2022 Pneumococcal Vaccine: 50+ Years (3 of 3 - PCV20 or PCV21) 10/09/2022 10/09/2017, 01/12/2016 Pneumococcal Vaccine: Pediatrics (0 to 5 Years) and At-Risk Patients (6 to 64 Years) (3 of 3 - PCV20 or PCV21) 10/09/2022 10/09/2017, 01/12/2016 COVID-19 Vaccine ( season) 2023 Depression Screening 10/15/2024 10/16/2023 Influenza Vaccine (Season Ended) 2024 04/27/2023, 07/25/2022, 03/20/2018, Additional history exists Breast Cancer Screening 11/19/2025 11/20/19 24, 10/11/2022, 10/05/2021, Additional history exists Colorectal Cancer Screening: FIT-DNA (Cologuard) 09/14/2026 09/15/2023 Cholesterol Screening (Lipid Panel) 08/28/2028 08/29/2023, 08/29/2023, 07/27/2021, Additional history exists DTaP,Tdap,and Td Vaccines (2 - Td or Tdap) 04/27/2033 04/27/2023 Hepatitis C Screening Completed 07/27/2021 Zoster Vaccines Completed 08/29/2023, 04/27/2023 HIB Vaccines Aged Out No longer eligi [...] age to complete this topic Meningococcal B Vaccine Aged Out No l onger eligible based on patient's age to complete this topic RSV Immunization Patients Under 20 months Aged Out No longer eligible based on patient's age to complete this topic Varicella Vaccines Aged Out No longer eligible based on patient's age to complete this topic Procedures Procedure Name Priority Date/Time Associated Diagnosis Comments CT ABDOMEN PELVIS W CONTRAST STAT 07/17/2024 9:51 PM EDT CHANDRA URINE CULTURE TUBE STAT 07/17/2024 8:48 PM EDT URINALYSIS WITH REFLEX MICROSCOPIC AND CULTURE STAT 07/17/2024 8:48 PM EDT URINALYSIS WITH REFLEX MICROSCOPIC AND CULTURE STAT 07/17/2024 8:48 PM EDT CULTURE URINE STAT 07/17/2024 8:48 PM EDT CBC WITH AUTO DIFFERENTIAL STAT 07/17/2024 4:48 PM EDT COMPREHENSIVE METABOLIC PANEL STAT 07/17/2024 4:48 PM EDT CBC AND DIFFERENTIAL STAT 07/17/2024 4:48 PM EDT RICCI SCREENING DIGITAL Routine 11/20/2023 9:32 AM EDT Encounter for screening mammogram for malignant neoplasm of breast from Last 3 Months or Most Recently Relevant to Health Maintenance Results * CT Abdomen Pelvis w Contrast (07/17/2024 9:51 PM EDT) Anatomical Region Laterality Modality Body Computed Tomogra phy 07/17/2024 10:2 6 PM EDT Impressions 07/17/2024 10:26 PM EDT 1. Administration of enteric contrast limits evaluation for GI bleed. 2. Mild mucosal thickening of the distal colon extending from the splenic flexure distally throughout the rectosigmoid region. Findings may be on the basis of nondistention although mild colitis could also give this appearance. 3. Hepatomegaly. 4. Multiple nonobstructing nephrolithiasis versus early filling of contrast within the right kidney. This document has been electronically signed by: Zeke Joshua DO on 07/17/2024 22:26:39 Narrative 07/17/2024 10:26 PM EDT INDICATION: llq pain, bloody diarrhea CT abdomen and pelvis with contrast Comparison: None Findings: Subsegmental atelectasis involving the lung bases. Atherosclerosis of the abdominal aorta. Hepatomegaly. The gallbladder, pancreas, spleen, adrenal glands are unremarkable. Multiple nonobstructing nephrolithiasis versus early filling of contrast within the right kidney. The contour of the urinary bladder is unremarkable. Hysterectomy. Administration of enteric contrast limits evaluation for GI bleed. Mild mucosal thickening of the distal colon extending from the splenic flexure distally throughout the rectosigmoid region. Findings may be on the basis of nondistention although mild colitis could also give this appearance. No bowel obstruction, pneumoperitoneum, or pneumatosis. Normal appendix. Enteric contrast within the lumen of the appendix. Degenerative changes of the lower lumbar spine. Procedure Note Zeke Joshua MD - 07/17/2024 INDICATION: llq pain, bloody diarrhea CT abdomen and pelvis with contrast Comparison: None Findings: Subsegmental atelectasis involving the lung bases. Atherosclerosis of the abdominal aorta. Hepatomegaly. The gallbladder, pancreas, spleen, adrenal glands are unremarkable. Multiple nonobstructing nephrolithiasis versus early filling of contrast within the right kidney. The contour of the urinary bladder is unremarkable. Hysterectomy. Administration of enteric contrast limits evaluation for GI bleed. Mild mucosal thickening of the distal colon extending from the splenic flexure distally throughout the rectosigmoid region. Findings may be on the basis of nondistention although mild colitis could also give this appearance. No bowel obstruction, pneumoperitoneum, or pneumatosis. Normal appendix. Enteric contrast within the lumen of the appendix. Degenerative changes of the lower lumbar spine. IMPRESSION: 1. Administration of enteric contrast limits evaluation for GI bleed. 2. Mild mucosal thickening of the distal colon extending from thesplenic flexure distally throughout the rectosigmoid region. Findings may be on the basis of nondistention although mild colitis could also give this appearance. 3. Hepatomegaly. 4. Multiple nonobstructing nephrolithiasis versus early filling of contrast within the right kidney. This document has been electronically signed by: Zeke Joshua DO on 07/17/2024 22:26:39 [place]ia [facility] [place]ED[place] Final Result * (ABNORMAL) Urinalysis with reflex microscopic and culture (07/17/2024 8:48 PM EDT) Specific Hardy Urine 1.020 1.003 - 1.030 LAB URINALYSIS - AUTOMATED METHOD 07/17/2024 10:13 PM [facility] pH, Urine 6.5 5.0 - 8.0 pH LAB URINALYSIS - AUTOMATED METHOD 07/17/2024 10:13 PM [facility] Leukocytes, Urine Moderate(A) Negative LAB URINALYSIS - AUTOMATED METHOD 07/17/2024 10:13 PM [facility] Nitrite, Urine Negative Negative LAB URINALYSIS - AUTOMATED METHOD 07/17/2024 10:13 PM [facility] Protein, Urine Trace <=Trace mg/dL LAB URINALYSIS - AUTOMATED METHOD 07/17/2024 10:13 PM [facility] Glucose, Urine Negative Negative mg/dL LAB URINALYSIS - AUTOMATED METHOD 07/17/2024 10:13 PM [facility] Ketones, Urine Negative Negative mg/dL LAB URINALYSIS - AUTOMATED METHOD 07/17/2024 10:13 PM [facility] Urobilinogen , Urine 0.2 0.2 - 1.0 mg/dL LAB URINALYSIS - AUTOMATED METHOD 07/17/2024 10:13 PM [facility] Bilirubin, Urine Negative Negative LAB URINALYSIS - AUTOMATED METHOD 07/17/2024 10:13 PM [facility] Blood, Urine Moderate(A) Negative LAB URINALYSIS - AUTOMATED METHOD 07/17/2024 10:13 PM [facility] RBC, Urine 18.5(H) 0 - 4 /HPF LAB URINALYSIS - AUTOMATED METHOD 07/17/2024 10:13 PM [facility] WBC, Urine 15.8(H) 0 - 4 /HPF LAB URINALYSIS - AUTOMATED METHOD 07/17/2024 10:13 PM [facility] Squamous Epithelial, Urine >100(H) 0 - 60 /LPF LAB URINALYSIS - AUTOMATED METHOD 07/17/2024 10:13 PM [facility] Crystals, Urine LT CALCIUM OXALATE /LPF LAB URINALYSIS - AUTOMATED METHOD 07/17/2024 10:13 PM [facility] Bacteria, Urine Negative Negative /HPF LAB URINALYSIS - AUTOMATED METHOD 07/17/2024 10:13 PM [facility] Hyaline Casts, Urine 2.0 0 - 3 /LPF LAB URINALYSIS - AUTOMATED METHOD 07/17/2024 10:13 PM [facility] Urine Urine specimen obtained by clean catch procedure / Unknown Non-blood Collection / Unknown 07/17/2024 8:48 PM EDT 07/17/2024 9:32 PM EDT Tia BUNN LAB URINE ORDERABLES Final Resul t Performing Organization Address [facility]/ZIP Co de Phone Number [facility] [address] [place] [address], [place] [phone] * Chandra urine culture tube (07/17/2024 8:48 PM EDT) [facility] Extra Tube Hold for add-ons. 07/17/2024 11:16 PM EDT [facility] Comment:Auto resulted. Urine Urine specimen obtained by clean catch procedure / Unknown Non-blood Collection / Unknown 07/17/2024 8:48 PM EDT 07/17/2024 9:32 PM EDT Tia BUNN LAB URINE ORDERABLES Final Resul t Performing Organization Address [facility]/ZIP Co de Phone Number [facility] [address] [place] [address], [place] [phone] * Culture urine (07/17/2024 8:48 PM EDT) [facility] Culture, Urine No growth 07/19/2024 8:12 AM EDT [facility] Urine Urine specimen obtained by clean catch procedure / Unknown Non-blood Collection / Unknown 07/17/2024 8:48 PM EDT 07/17/2024 10:13 PM EDT Tia BUNN LAB MICROBIOLOGY - GENERAL ORDER FELISA Final Result Performing Organization Address City/[facility]/ZIP Co de Phone Number [facility] [address] [place] [address], [place] [phone] * (ABNORMAL) CBC auto differential (07/17/2024 4:48 PM EDT) Pathologist [facility] WBC 9.6 4.8 - 10.8 K/mcL LAB HEMETOLOGY METHOD 07/17/2024 5:23 PM EDT [facility] RBC 3.70(L) 3.80 - 4.80 M/mcL LAB HEMETOLOGY METHOD 07/17[facility]2024 5[facility] Hemoglobin 11.1(L) 11.5 - 16.0 g/dL LAB HEMETOLOGY METHOD 07/17/2024 5:23 [facility] Hematocrit 35.3 35.0 - 47.0 % LAB HEMETOLOGY METHOD 07/17/2024 5:23 [facility] MCV 94.6 79.0 - 98.0 FL LAB HEMETOLOGY METHOD 07/17/2024 5:23 PM [facility] MCH 29.8 27.0 - 32.0 pcg LAB HEMETOLOGY METHOD 07/17/2024 5:23 PM [facility] MCHC 31.4(L) 32.0 - 37.0 g/dL LAB HEMETOLOGY METHOD 07/17/2024 5:23 PM [facility] RDW 13.9 11.0 - 15.0 % LAB HEMETOLOGY METHOD 07/17/2024 5:23 PM [facility] Platelets 256 130 - 400 K/mcL LAB HEMETOLOGY METHOD 07/17/2024 5:23 [facility] MPV 11.0 7.0 - 11.0 FL LAB HEMETOLOGY METHOD 07/17/2024 5:23 PM [facility] NRBC 0.0 <1.0 % LAB HEMETOLOGY METHOD 07/17/2024 5:23 PM [facility] NRBC Absolute 0.00 <0.10 K/[facility] LAB HEMETOLOGY METHOD 07/17/2024 5:23 PM [facility] Neutrophils Relative 60.4 % LAB HEMETOLOGY METHOD 07/17/2024 5:23 [facility] Lymphocytes Relative 33.0 % LAB HEMETOLOGY METHOD 07/17/2024 5:23 PM [facility] Monocytes Relative 5.3 % LAB HEMETOLOGY METHOD 07/17/2024 5:23 PM [facility] Eosinophils Relative 1.0 % LAB HEMETOLOGY METHOD 07/17/2024 5:23 PM [facility] Basophils Relative 0.1 % LAB HEMETOLOGY METHOD 07/17/2024 5:23 PM [facility] Immature Granulocytes Relative 0.2 % LAB HEMETOLOGY METHOD 07/17/2024 5:23 PM [facility] Neutrophils Absolute 5.78 1.50 - 7.00 K/mcL LAB HEMETOLOGY METHOD 07/17/2024 5:23 PM [facility] Lymphocytes Absolute 3.16 1.00 - 5.00 K/mcL LAB HEMETOLOGY METHOD 07/17/2024 5:23 PM [facility] Monocytes Absolute 0.51 0.20 - 1.00 K/mcL LAB HEMETOLOGY METHOD 07/17/2024 5:23 PM [facility] Eosinophils Absolute 0.10 0.00 - 0.50 K/mcL LAB HEMETOLOGY METHOD 07/17/2024 5:23 PM [facility] Basophils Absolute 0.01 0.00 - 0.20 K/mcL LAB HEMETOLOGY METHOD 07/17/2024 5:23 PM [facility] Immature Granulocytes Absolute 0.02 0.00 - 0.03 K/mcL LAB HEMETOLOGY METHOD 07/17/2024 5:23 PM [facility] Blood Venous blood specimen / Unknown Venipuncture / Unknown 07/17/2024 4:48 PM EDT 07/17/2024 5:16 PM EDT us Krunal Ayoub DO LAB BLOOD ORDERABLES Final Result [facility] [address] [place] [address], [place] [phone] * (ABNORMAL) Comprehensive metabolic panel (07/17/2024 4:48 PM EDT) Sodium 138 133 - 145 mmol/L LAB CHEMISTRY METHOD 07/17/2024 6:06 PM [facility] Potassium 4.6 3.5 - 5.5 mmol/L LAB CHEMISTRY METHOD 07/17/2024 6:06 PM [facility] Chloride 107 96 - 110 mmol/L LAB CHEMISTRY METHOD 07/17/2024 6:06 PM [facility] CO2 26 21 - 32 mmol/L LAB CHEMISTRY METHOD 07/17/2024 6:06 PM [facility] Anion Gap 5 3 - 11 LAB CHEMISTRY METHOD 07/17/2024 6:06 PM [facility] Glucose 125(H) 70 - 100 mg/dL LAB CHEMISTRY METHOD 07/17/2024 6:06 PM [facility] BUN 25 5 - 25 mg/dL LAB CHEMISTRY METHOD 07/17/2024 6:06 PM [facility] Creatinine 0.82 0.50 - 1.10 mg/dL LAB CHEMISTRY METHOD 07/17/2024 6:06 PM [facility] eGFR 86 >=60 mL/min/1. 73m2 LAB CHEMISTRY METHOD 07/17/2024 6:06 PM [facility] Comment:Calculation based on the??Chronic Kidney Disease Epidemiology Collaboration (CKD-EPI) equation refit??without adjustment for race. BUN/Creatinine Ratio 30.5 LAB CHEMISTRY METHOD 07/17/2024 6:06 PM [facility] Calcium 9.0 8.5 - 10.5 mg/dL LAB CHEMISTRY METHOD 07/17/2024 6:06 PM EDT [facility] AST (SGOT) 25 10 - 42 unit/L LAB CHEMISTRY METHOD 07/17/2024 6:06 PM EDT [facility] ALT (SGPT) 44 10 - 60 unit/L LAB CHEMISTRY METHOD 07/17/2024 6:06 PM EDT [facility] Alkaline Phosphatase 90 42 - 121 unit/L LAB CHEMISTRY METHOD 07/17/2024 6:06 PM EDT [facility] Total Protein 6.2 6.0 - 8.0 g/dL LAB CHEMISTRY METHOD 07/17/2024 6:06 PM [facility] Albumin 3.8 3.2 - 5.0 g/dL LAB CHEMISTRY METHOD 07/17/2024 6:06 PM EDT [facility] Total Bilirubin 0.3 0.0 - 1.4 mg/dL LAB CHEMISTRY METHOD 07/17/2024 6:06 PM EDT [facility] Blood Venous blood specimen / Unknown Venipuncture / Unknown 07/17/2024 4:48 PM EDT 07/17/2024 5:16 PM EDT us Krunal Ayoub DO LAB BLOOD ORDERABLES Final Result [facility] [address] [place] [address], * RICCI SCREENING DIGITAL (11/20/2023 9:32 AM EDT) Anatomical Region Laterality Modality Mammography 11/16/2023 1:31 PM EDT Narrative 11/20/2023 9:[address] [facility] Diagnostic Imaging Department [address] [place] [address] Patient: ??WALLACE MURO ?/Age/Sex: 1970 - 53 - F Unit#: ??[id number] ? Location/Status: ??SPDIMAM/REG CLI ? Mnemonic/Ordering Site: ??DIGSC/SPMAM Ordering Physician: ??JENNIE FOX [facility] Screening Digital - 11/16/23 - 1351 Report Status:Signed EXAM: [facility] Screening Digital EXAM DATE AND TIME: 11/16/2023 1:51 PM HISTORY: ??Screening. Excisional biopsy of the left breast in 2016, pathology benign. Patient states weight loss since the previous exam. COMPARISON: ??10/10/22, 10/05/21, 01/03/19 TECHNIQUE: Bilateral digital breast tomosynthesis was performed in the CC and MLO projections. Computer aided detection with [employer] 3D 3.1 was employed. TISSUE DENSITY: c. [...] Procedure Note Arlene Flowers MD - 01/16/[address] [facility] Diagnostic Imaging Department [address] [place] [id number] Patient: SARATHWALLACE./Age/Sex: 1970 - 53 - F Unit#: [id number] Location/Status: [facility] CLI Mnemonic/Ordering Site: [facility] Ordering Physician: JENNIE FOX [facility] Screening Digital - 11/16/23 - 1351 Report Status:Signed EXAM: [facility] Screening Digital EXAM DATE AND TIME: 11/16/2023 1:51 PM HISTORY: Screening. Excisional biopsy of the left breast in 2016,pathology benign. Patient states weight loss since the previous exam. COMPARISON: 10/10/22, 10/05/21, 01/03/19 TECHNIQUE: Bilateral digital [facility]. Computer aided detection with [employer] 3D 3.1was employed. TISSUE DENSITY: c. The [...] Most Recently Relevant to Health Maintenance Insurance MEDICAID - [place] Care Teams Lav Crewman Relationship Specialty Start Date End Date Yomi Oliva FNP [address] [place] [address] PCP - General Family Medicine 08/06/24
== END 2024-08-22 13:56 | disposition home or self-care (01) ==
LOC: HO.HUSH 07:48
PROVIDERS: PCP Physician Assistant; Visit Provider Urology
DX: Z87.442 Personal history of urinary calculi (principal); E83.59 Other disorders of calcium metabolism; N29 Other disorders of kidney and ureter in diseases classified elsewhere
CPT/HCPCS: 99213

== ENCOUNTER → 2024-08-22 07:48 | Outpatient (BNVA) | payer MEDICAID, SELFPAY | PROVIDERS: PCP Physician Assistant; Visit Provider Urology ==